=== PATIENT | female | born 2000 | race African-American/Black ===

== ENCOUNTER 2025-01-01 18:46 | Emergency (ER) | payer MEDICAID ==
[~2025-01-01] VITALS: Ht 160 cm; Wt 55.0 kg
[2025-01-01 18:51] VITALS: O2SAT 99
[2025-01-01] MEDS: HYDROCODONE/ACETAMINOPHEN 5/325MG TABLET PO ONE (21:36)
[2025-01-01] MEDS ORDERED: CYCL10TA21 MT (21:58)
[2025-01-01 22:18] VITALS: BP 132/99; PULSE 91; RESP 16; TEMP 36.7; O2SAT 99
== END 2025-01-01 22:34 | disposition home or self-care (01) ==
LOC: ER 18:46
DX: M25.511 Pain in right shoulder (principal); M79.641 Pain in right hand; M62.838 Other muscle spasm; V89.2XXA Person injured in unspecified motor-vehicle accident, traffic, initial encounter; Y93.89 Activity, other specified; Y92.89 Other specified places as the place of occurrence of the external cause; Y99.8 Other external cause status
CPT/HCPCS: 29125; 71045; 73030; 73120; 99284; A4565